=== PATIENT | male | born 1990 | race Caucasian/White ===

== ENCOUNTER 2022-03-09 10:19 | Emergency (ER) | payer SELFPAY ==
[~2022-03-09] VITALS: Ht 180.3 cm; Wt 86.2 kg
[2022-03-09 11:54] LABS: Influenza B, PCR NEGATIVE (NEGATIVE); Resp Syncytial Virus, PCR NEGATIVE (NEGATIVE); SARS-Cov-2 (COVID-19) PCR, MMC NEGATIVE (NEGATIVE)
[2022-03-09 12:10] LABS: Influenza A, PCR POSITIVE (NEGATIVE)
== END 2022-03-09 12:27 | disposition home or self-care (01) ==
LOC: ER 10:19
PROVIDERS: Physician Assistant
DX: J10.1 Influenza due to other identified influenza virus with other respiratory manifestations (principal)
CPT/HCPCS: 0241U; 99283